=== PATIENT | male | born 1985 | race African-American/Black ===

== ENCOUNTER 2020-09-26 09:19 | Emergency (ER) | payer MEDICAID ==
[~2020-09-26] VITALS: Ht 175.3 cm; Wt 58.0 kg
[2020-09-26 09:29] VITALS: BP 160/86
[2020-09-26] MEDS ORDERED: SODIUM CHLORIDE 0.9% 1,000 ML IV ONE (09:45)
== END 2020-09-26 10:39 | disposition left against medical advice (07) ==
LOC: ER 09:28
DX: F15.129 Other stimulant abuse with intoxication, unspecified (principal); G93.49 Other encephalopathy; F16.10 Hallucinogen abuse, uncomplicated; F32.9 Major depressive disorder, single episode, unspecified
CPT/HCPCS: 93005; 99283; J7030

== ENCOUNTER 2020-10-01 06:08 | Emergency (ER) | payer MEDICAID ==
[~2020-10-01] VITALS: Ht 182.9 cm; Wt 86.0 kg
[2020-10-01 07:00] VITALS: BP 161/105
[2020-10-01] MEDS ORDERED: SODIUM CHLORIDE 0.9% 1,000 ML IV SCH ×2 (07:00→09:00)
[2020-10-01 07:41] LABS: BASOPHILS % 0.4 % (0.0-2.0); HEMATOCRIT. 46.2 % (42.0-52.0); HEMOGLOBIN. 15.7 g/dL (14.0-18.0); LYMPHOCYTES % 10.5 % (20.0-50.0); MEAN CORPUSCULAR HEMOGLOBIN 31.2 pg (28.0-32.0); MEAN CORPUSCULAR VOLUME 91.9 fL (80.0-94.0); MEAN PLATELET VOLUME 11.2 fl (7.4-10.4); MONOCYTES % 4.4 % (2.0-8.0); NEUTROPHILS % 82.7 % (40.0-76.0); PLATELET 160 x1000/uL (130-400); RED BLOOD CELL COUNT 5.03 mill/uL (4.7-6.1)
[2020-10-01 07:47] LABS: CHLORIDE 108 mEq/L (98-107)
[2020-10-01 07:51] LABS: ETHANOL BLOOD 10 mg/dL
[2020-10-01 08:19] LABS: CREATINE KINASE 6710 IU/L (39-308)
[2020-10-01 09:21] LABS: CLARITY URINE CLEAR (CLEAR); COLOR URINE YELLOW (YELLOW)
[2020-10-01 09:22] LABS: KETONES URINE NEGATIVE (NEGATIVE); LEUKOCYTE ESTERASE URINE NEGATIVE (NEGATIVE); NITRITE URINE NEGATIVE (NEGATIVE); OCCULT BLOOD URINE NEGATIVE (NEGATIVE); PH URINE 5.5 (4.5-8.0); PROTEIN URINE NEGATIVE (NEGATIVE); SPECIFIC GRAVITY URINE 1.008 (1.005-1.030); UROBILINOGEN URINE 0.2 E.U./dL (0.2-1.0)
[2020-10-01 10:51] LABS: *AMPHETAMINES SCREEN URINE NEGATIVE (NEGATIVE); *BARBITURATES SCREEN URINE NEGATIVE (NEGATIVE); *BENZODIAZEPINES SCREEN URINE NEGATIVE (NEGATIVE); *COCAINE SCREEN URINE NEGATIVE (NEGATIVE); CANNABINOID URINE SCREEN NEGATIVE (NEGATIVE); METHADONE URINE SCREEN NEGATIVE (NEGATIVE); OPIATES URINE SCREEN NEGATIVE (NEGATIVE)
[2020-10-01 10:52] LABS: PHENCYCLIDINE URINE SCREEN PRESUMTIVE POSITIVE (NEGATIVE)
== END 2020-10-01 13:16 | disposition left against medical advice (07) ==
LOC: ER 06:08
DX: F10.129 Alcohol abuse with intoxication, unspecified (principal); Y90.0 Blood alcohol level of less than 20 mg/100 ml; F16.10 Hallucinogen abuse, uncomplicated; F19.10 Other psychoactive substance abuse, uncomplicated; F32.9 Major depressive disorder, single episode, unspecified
CPT/HCPCS: 36415; 80053; 80305; 80307; 80320; 80329; 81003; 82550; 84443; 85025; 93005; 96360; 99285; G0480

== ENCOUNTER 2020-10-16 21:44 | Emergency (ER) | payer MEDICAID ==
[~2020-10-16] VITALS: Ht 182.9 cm; Wt 72.0 kg
[2020-10-16] MEDS ORDERED: SODIUM CHLORIDE 0.9% 1,000 ML IV ONE (22:30)
[2020-10-17] MEDS ORDERED: NALOXONE HCL 0.4 MG/ML 1ML VIAL IV ONE (00:15)
[2020-10-17 00:24] LABS: BASOPHILS % 0.3 % (0.0-2.0); EOSINOPHILS % 3.5 % (0.0-5.0); HEMATOCRIT. 39.8 % (42.0-52.0); HEMOGLOBIN. 13.5 g/dL (14.0-18.0); LYMPHOCYTES % 22.6 % (20.0-50.0); MEAN CORPUSCULAR HEMOGLOBIN 30.8 pg (28.0-32.0); MEAN CORPUSCULAR VOLUME 91.4 fL (80.0-94.0); MEAN PLATELET VOLUME 9.9 fl (7.4-10.4); MONOCYTES % 8.1 % (2.0-8.0); NEUTROPHILS % 65.5 % (40.0-76.0); PLATELET 204 x1000/uL (130-400); RED BLOOD CELL COUNT 4.36 mill/uL (4.7-6.1); RED CELL DISTRIBUTION WIDTH 14.3 % (11.6-14.6)
[2020-10-17 00:26] LABS: *AMPHETAMINES SCREEN URINE PRESUMTIVE POSITIVE (NEGATIVE); *BARBITURATES SCREEN URINE NEGATIVE (NEGATIVE); *BENZODIAZEPINES SCREEN URINE NEGATIVE (NEGATIVE); *COCAINE SCREEN URINE NEGATIVE (NEGATIVE); METHADONE URINE SCREEN NEGATIVE (NEGATIVE); OPIATES URINE SCREEN NEGATIVE (NEGATIVE)
[2020-10-17 00:27] LABS: CANNABINOID URINE SCREEN NEGATIVE (NEGATIVE); PHENCYCLIDINE URINE SCREEN PRESUMTIVE POSITIVE (NEGATIVE)
[2020-10-17 00:30] LABS: CHLORIDE 108 mEq/L (98-107)
[2020-10-17 00:34] LABS: ETHANOL BLOOD 10 mg/dL
[2020-10-17 07:30] VITALS: BP 145/73
== END 2020-10-17 08:19 | disposition home or self-care (01) ==
LOC: ER 21:44
DX: T40.601A Poisoning by unspecified narcotics, accidental (unintentional), initial encounter (principal); F10.129 Alcohol abuse with intoxication, unspecified; F15.129 Other stimulant abuse with intoxication, unspecified; F16.129 Hallucinogen abuse with intoxication, unspecified; Y90.0 Blood alcohol level of less than 20 mg/100 ml; Y92.488 Other paved roadways as the place of occurrence of the external cause
CPT/HCPCS: 36415; 80053; 80305; 80320; 82962; 85025; 93005; 96361; 96374; 99285; J2310; J7030; Z7610; G0480

== ENCOUNTER 2020-10-18 09:17 | Emergency (ER) | payer MEDICAID ==
[~2020-10-18] VITALS: Ht 177.8 cm; Wt 82.0 kg
[2020-10-18 10:11] LABS: BASOPHILS % 0.7 % (0.0-2.0); EOSINOPHILS % 3.3 % (0.0-5.0); HEMATOCRIT. 42.3 % (42.0-52.0); HEMOGLOBIN. 14.4 g/dL (14.0-18.0); LYMPHOCYTES % 25.4 % (20.0-50.0); MEAN CORPUSCULAR HEMOGLOBIN 30.9 pg (28.0-32.0); MEAN CORPUSCULAR VOLUME 91.2 fL (80.0-94.0); MEAN PLATELET VOLUME 10.4 fl (7.4-10.4); MONOCYTES % 6.9 % (2.0-8.0); NEUTROPHILS % 63.7 % (40.0-76.0); PLATELET 194 x1000/uL (130-400); RED BLOOD CELL COUNT 4.64 mill/uL (4.7-6.1); RED CELL DISTRIBUTION WIDTH 14.3 % (11.6-14.6)
[2020-10-18 10:14] LABS: CHLORIDE 107 mEq/L (98-107)
[2020-10-18 22:22] VITALS: BP 128/88
== END 2020-10-18 22:29 | disposition home or self-care (01) ==
LOC: ER 09:17
DX: F19.10 Other psychoactive substance abuse, uncomplicated (principal); M79.18 Myalgia, other site; R10.13 Epigastric pain; R51.9 Headache, unspecified; F15.10 Other stimulant abuse, uncomplicated
CPT/HCPCS: 36415; 80053; 85025; 93005; 99285

== ENCOUNTER 2020-12-25 14:54 | Emergency (ER) | payer MEDICAID ==
[~2020-12-25] VITALS: Ht 175.3 cm; Wt 73.0 kg
[2020-12-25] MEDS ORDERED: TETANUS, DIPHTHERIA, PERTUSSIS VAC/PF 0.5ML (>7YR OLD) IM ONE (15:30)
[2020-12-25 15:56] LABS: BG BASE EXCESS 4.2 mmol/L (-2.0-2.0); BG CARBOXYHEMOGLOBIN 2.9 % (0.5-1.5); BG DEOXYHEMOGLOBIN 5.6 % (0.0-5.0); BG FRACTION INSPIRED OXYGEN 21; BG HCO3 ACT 30.2 mmol/L (22.0-26.0); BG METHEMOGLOBIN 0.3 % (0.0-1.5); BG OXYGEN SATURATION 94.2 % (92.0-98.5); BG OXYHEMOGLOBIN 91.2 % (94.0-97.0); BG PCO2 50.3 mmHg (35.0-45.0); BG PH 7.397 (7.350-7.450); BG SAMPLE SITE RIGHT RADIAL; BG TOTAL HEMOGLOBIN 15.5 g/dL (12.0-18.0); BG VENT MODE ROOM AIR
[2020-12-25 16:41] LABS: BASOPHILS % 0.2 % (0.0-2.0); EOSINOPHILS % 1.8 % (0.0-5.0); HEMATOCRIT. 47.5 % (42.0-52.0); HEMOGLOBIN. 15.6 g/dL (14.0-18.0); LYMPHOCYTES % 9.5 % (20.0-50.0); MEAN CORPUSCULAR VOLUME 94.1 fL (80.0-94.0); MEAN PLATELET VOLUME 10.8 fl (7.4-10.4); MONOCYTES % 4.7 % (2.0-8.0); NEUTROPHILS % 83.8 % (40.0-76.0); PLATELET 174 x1000/uL (130-400); RED BLOOD CELL COUNT 5.04 mill/uL (4.7-6.1); RED CELL DISTRIBUTION WIDTH 13.5 % (11.6-14.6)
[2020-12-25 16:44] LABS: CHLORIDE 109 mEq/L (98-107)
[2020-12-25 16:50] LABS: PARTIAL THROMBOPLASTIN TIME 21.1 sec (23.4-31.0); PROTHROMBIN TIME 10.3 sec (9.6-11.0)
[2020-12-25 23:00] VITALS: BP 138/91
== END 2020-12-26 00:07 | disposition home or self-care (01) ==
LOC: ER 15:01
DX: G93.40 Encephalopathy, unspecified (principal); F19.10 Other psychoactive substance abuse, uncomplicated; F17.200 Nicotine dependence, unspecified, uncomplicated; S01.111A Laceration without foreign body of right eyelid and periocular area, initial encounter; S01.412A Laceration without foreign body of left cheek and temporomandibular area, initial encounter; Y08.89XA Assault by other specified means, initial encounter; Y93.9 Activity, unspecified; Y92.9 Unspecified place or not applicable
CPT/HCPCS: 36415; 36600; 80053; 82375; 82805; 85025; 86850; 86900; 90471; 90715; 99285

== ENCOUNTER 2023-12-12 21:22 | Emergency (ER) | payer SELFPAY ==
[~2023-12-12] VITALS: Ht 170.2 cm; Wt 82.0 kg
[2023-12-12 21:25] VITALS: BP 151/112; PULSE 100; RESP 20; TEMP 98.3; O2SAT 98
[2023-12-12 21:51] LABS: BASOPHILS % 0.7 % (0.0-2.0); EOSINOPHILS % 2.2 % (0.0-5.0); HEMATOCRIT. 43.9 % (42.0-52.0); HEMOGLOBIN. 15.2 g/dL (14.0-18.0); LYMPHOCYTES % 19.9 % (20.0-50.0); MEAN CORPUSCULAR HEMOGLOBIN 31.7 pg (28.0-32.0); MEAN CORPUSCULAR HGB CONC 34.6 g/dL (31.0-37.0); MEAN CORPUSCULAR VOLUME 91.6 fL (80.0-94.0); MEAN PLATELET VOLUME 9.5 fl (7.4-10.4); MONOCYTES % 5.5 % (2.0-8.0); NEUTROPHILS % 71.7 % (40.0-76.0); PLATELET 225 x1000/uL (130-400); RED BLOOD CELL COUNT 4.79 mill/uL (4.7-6.1); RED CELL DISTRIBUTION WIDTH 14.3 % (11.6-14.6); WHITE BLOOD COUNT 10.5 x1000/uL (4.5-11.0)
[2023-12-12 22:03] LABS: ACETAMINOPHEN < 2 ug/mL (10-30); ALANINE AMINOTRANSFERASE 22 IU/L (10-49); ALBUMIN 4.4 g/dL (3.2-4.8); ASPARTATE AMINOTRANSFERASE 35 IU/L (<34); BILIRUBIN TOTAL 0.4 mg/dL (0.1-1.0); CALCIUM 8.8 mg/dL (8.7-10.4); CARBON DIOXIDE 25 mEq/L (21-32); CHLORIDE 107 mEq/L (98-107); CREATININE 1.1 mg/dL (0.6-1.3); ETHANOL BLOOD < 10 mg/dL (<10); GLUCOSE 119 mg/dL (70-105); POTASSIUM 3.6 mEq/L (3.5-5.1); SODIUM 139 mEq/L (136-145); UREA NITROGEN BLOOD 7 mg/dL (9-23)
== END 2023-12-12 22:50 | disposition left against medical advice (07) ==
LOC: ER 21:22
DX: T65.91XA Toxic effect of unspecified substance, accidental (unintentional), initial encounter (principal); Z53.21 Procedure and treatment not carried out due to patient leaving prior to being seen by health care provider; Y92.89 Other specified places as the place of occurrence of the external cause
CPT/HCPCS: 36415; 80053; 80307; 80320; 80329; 85025; 99281; G0480